=== PATIENT | female | born 2000 | race Caucasian/White ===

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

== ENCOUNTER → 2022-11-14 | Outpatient (CLI) | payer BC ==
--- NOTE | 2022-11-14 16:21 | XR ---
EXAMINATION TYPE: XR chest 2V DATE OF EXAM: 11/14/2022 COMPARISON: NONE HISTORY: Chest pain TECHNIQUE: Frontal and lateral views of the chest are obtained. FINDINGS: There is no focal air space opacity. No evidence for pneumothorax. No pleural effusion. The cardiac silhouette size is within normal limits. The osseous structures are grossly intact. IMPRESSION: 1. No acute cardiopulmonary process.
== END | disposition home or self-care (01) ==
LOC: RADXRMAIN 16:00
PROVIDERS: ATTEND Physician Assistant
DX: J18.9 Pneumonia, unspecified organism (principal)
CPT/HCPCS: 71046

== ENCOUNTER → 2022-11-14 | Outpatient (CLI) | payer BC ==
[2022-11-14 22:38] LABS: Basophils # (A) 0.05 X 10*3/uL (0.00-0.10); Basophils % (A) 0.5 %; Eosinophils # (A) 0.08 X 10*3/uL (0.04-0.35); Eosinophils % (A) 0.8 %; HGB 13.7 g/dL (12.0-15.0); Immature Grans, Automated 0.2 %; Lymphocytes # (A) 1.96 X 10*3/uL (0.90-5.00); Lymphocytes % (A) 18.6 %; MCH 27.3 pg (27.0-32.0); MCHC 31.1 g/dL (32.0-37.0); MCV 87.8 fL (80.0-97.0); Mean Platelet Volume 11.8 fL (9.5-12.2); Monocytes % (A) 14.2 %; NRBC Per 100 WBC 0 /100 WBCS (0.0-0.0); Neutrophils # (A) 6.94 X 10*3/uL (1.80-7.70); Neutrophils % (A) 65.7 %; Platelet Count 242 X 10*3/uL (140-440); RBC 5.01 X 10*6/uL (4.10-5.20); RDW 12.3 % (11.5-14.5); WBC 10.55 X 10*3/uL (4.50-10.00)
[2022-11-14 23:06] LABS: Erythrocyte Sedimentation Rate 32 mm/Hr (0-20)
[2022-11-15 04:36] LABS: Mycoplasma IgM Antibody 1.38 INDEX (<=0.90)
[2022-11-15 04:37] LABS: Mycoplasma IgG Antibody (EIA) 4.61 INDEX (<=0.90)
== END | disposition home or self-care (01) ==
LOC: LABWHC1 15:29
PROVIDERS: ATTEND Physician Assistant
DX: J18.9 Pneumonia, unspecified organism (principal)
CPT/HCPCS: 36415; 85025; 85652; 86140; 86738; 87634